=== PATIENT | male | born 1930 | race African-American/Black ===

== ENCOUNTER 2019-02-06 20:05 | Emergency (ER) | payer OTHER, MEDICARE ==
[~2019-02-06] VITALS: Ht 170.2 cm; Wt 63.5 kg
[~2019-02-06 20:05] MED LIST: DIAZEPAM 5 MG5 M1; FLEXERIL; HYDROCODONE BT1 EAC1; LISINOPRIL-HCT1 EACH; SIMVASTATIN10 MG; TRIAM60 TP
[2019-02-06 21:11] LABS: ABSOLUTE NEUTROPHILS 3.9 thou/uL (1.4-8.2); BASOPHILS 1.2 % (0.0-2.0); EOSINOPHILS 1.4 % (0.0-3.0); HEMATOCRIT 39.7 % (42.0-52.0); HEMOGLOBIN 13.2 gm/dL (14.0-18.0); LYMPHOCYTES 27.6 % (24.0-44.0); MCH 30.6 pg (26.0-34.0); MCHC 33.4 g/dL (28.0-37.0); MCV 91.7 fL (80.0-100.0); MONOCYTES 10.2 % (1.0-8.0); PLATELET COUNT 156 thou/uL (150-400); POLYS 59.6 % (36.0-66.0); RBC 4.33 mil/uL (4.50-6.00); RDW 14.9 % (10.5-14.5); WBC 6.5 thou/uL (4.0-11.0)
[2019-02-06 21:17] LABS: ANION GAP 7 mmol/L (7-16); BUN 26 mg/dL (7-18); CALCIUM 8.8 mg/dL (8.5-10.1); CHLORIDE 105 mmol/L (98-107); CO2 28 mmol/L (21-32); CREATININE 1.6 mg/dL (0.7-1.3); GLUCOSE 134 mg/dL (74-106); POTASSIUM 5.9 mmol/L (3.5-5.1); SODIUM 140 mmol/L (136-145)
[2019-02-06 21:28] LABS: ALBUMIN 3.3 g/dL (3.4-5.0); LIPASE 48 U/L (73-393); MAGNESIUM 2.3 mg/dL (1.8-2.4); SGOT 38 U/L (15-37); SGPT 15 U/L (30-65); TOTAL BILIRUBIN 0.6 mg/dL (<0.1-1.0); TOTAL PROTEIN 7.2 g/dL (6.4-8.2); TROPONIN-I <0.06 ng/mL (<0.06)
[2019-02-06 23:15] VITALS: BP 120/68
--- NOTE | 2019-02-07 08:02 | EKG ---
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 : 1930 Requested By: Boston Falcon Order Number: [id number] MD: Raúl Kevin Measurements Intervals [place] Rate: 73 P: 49 RI: 173 QRS: 35 QRSD: 83 T: 64 QT: 380 QTc: 419 Interpretive Statements Sinus rhythm Poor R wave progression No previous ECG available for comparison Electronically Signed On 02-07-2019 8:01:56 CDT by Raúl Kevin [email or web address] ��������������������������������������������� <ELECTRONICALLY SIGNED> ���������������������������������������� By: Raúl Kevin MD, [facility] ��������������������������������������������� 02/07/19 0801 2048 2048 Raúl Kevin MD, FAC /EPI
== END 2019-02-06 23:15 | disposition home or self-care (01) ==
LOC: ER 20:05
PROVIDERS: Emergency Medicine
DX: R53.1 Weakness (principal); R63.0 Anorexia; Z68.20 Body mass index [BMI] 20.0-20.9, adult; I12.9 Hypertensive chronic kidney disease with stage 1 through stage 4 chronic kidney disease, or unspecified chronic kidney disease; N18.9 Chronic kidney disease, unspecified

== ENCOUNTER 2019-03-08 21:10 | Inpatient (IN) | payer OTHER, MEDICARE ==
[~2019-03-08] VITALS: Ht 170.2 cm; Wt 60.6 kg
--- NOTE | ~2019-03-08 | HC ---
[facility] [place] [address] CONSULTATION Name: Arlene SCHWARTZ Room #: 355-P [facility] IN [facility].#: [id number] Admission: 03/09/19 Attend Phys: Jose Martin Juarez MD Discharge: Date of : [birth year] Report #: [id number] THIS REPORT FOR: //name// CC: Alexandre Juarez Olegario Luongis DATE OF SERVICE: 03/16/2019 HISTORY OF PRESENT ILLNESS: The patient is an 89-year-old male with a history of hypertension, chronic kidney disease, anemia, hiatal hernia, who presented from home with intermittent lower abdominal pain. He underwent a laparoscopic Momo patch of a perforated gastric ulcer on 03/09/2019. He had issues with post-procedure delirium and pulled out his NG tube. He was taken back to the OR on 03/13/2019 for exploratory lap, NG tube insertion and gastric ulcer biopsy. He had a modified Momo patch. Plan is for several more days of n.p.o. status, NG tube to low intermittent suction. Daughter has been staying with him and the mental status changes appear improved. He is currently on TPN. From my review, he is to have an upper GI on 03/18/2019. PAST MEDICAL HISTORY: Includes BPH, GERD, hypertension, multi-joint degenerative arthritis, back pain, chronic kidney disease stage 3, anemia, cholecystectomy, and lumbar fusion L3-L5. MEDICATIONS: Please see the full medication listing. ALLERGIES: No known drug allergies. HABITS: No history of alcohol abuse. He is noted to be a former smoker. SOCIAL HISTORY: Lives in a house alone. His daughter frequently visits and assists with IADLs. She will be able to stay with the patient post-discharge. He was a premorbid cane ambulator and more recently was utilizing a walker. REVIEW OF SYSTEMS: No current complaints of chest pain, shortness of breath or abdominal discomfort. Notes, he has chronic degenerative arthritis. PHYSICAL EXAMINATION: GENERAL: An 89-year-old slender -Maldivian male in no obvious distress. VITAL SIGNS: Last recorded temperature 97.6, pulse 71, respirations 18, blood pressure 156/60. ABDOMEN: He has the NG tube in place. Abdominal dressing with GRISEL drain and Andrea catheter. NEUROLOGIC: He is alert, tends to defer some of the answers to his daughter will follow basic 1 step commands. Facies are symmetric. Functional range of motion of the upper extremity strength is grade 4-/5. DTRs are trace to 1. [address] [address] CONSULTATION Name: Arlene SCHWARTZ Room #: [address] [place] [address]#: [id number] Admission: 03/09/19 Attend Phys: Jose Martin Juarez MD Discharge: Date of : [birth year] Report #: [id number] Lower extremities: He has chronic degenerative arthritic complaints. Strength is probably a grade 3+ to 4-/5. No distal lower extremity edema. Sit to stand was max assist. Gait 40 feet min assist front-wheeled walker. ASSESSMENT: An 89-year-old -Maldivian male with the following problem list: 1. Postoperative delirium/toxic metabolic encephalopathy that appears improved. 2. Perforated gastric ulcer, status post laparoscopic and then opened modified Momo patch. 3. N.p.o. currently with NG tube and TPN. 4. Generalized weakness and debilitation. 5. Multi-joint arthritis. 6. Premorbid walker ambulator. 7. Chronic kidney disease. PLAN: We are following the patient regarding rehab therapy issues. May consider him for an acute in-hospital inpatient rehabilitation stay as he further medically stabilizes. Discussion with the patient's daughter. We will be glad to follow along with you. Functionally progresses as he further medically stabilizes. By: 1210 1545 Joseluis Penn MD /nt
[2019-03-08 21:13] VITALS: BP 91/34
[2019-03-08 22:18] LABS: BASOPHILS 0.3 % (0.0-2.0); EOSINOPHILS 0.3 % (0.0-3.0); HEMATOCRIT 39.2 % (42.0-52.0); HEMOGLOBIN 13.1 gm/dL (14.0-18.0); LYMPHOCYTES 8.9 % (24.0-44.0); MCH 30.2 pg (26.0-34.0); MCHC 33.3 g/dL (28.0-37.0); MCV 90.7 fL (80.0-100.0); MONOCYTES 8.2 % (1.0-8.0); PLATELET COUNT 158 thou/uL (150-400); POLYS 82.3 % (36.0-66.0); RBC 4.32 mil/uL (4.50-6.00); RDW 13.9 % (10.5-14.5); WBC 6.1 thou/uL (4.0-11.0)
[2019-03-08 22:29] LABS: CALCIUM 9.1 mg/dL (8.5-10.1); CREATININE 1.7 mg/dL (0.7-1.3)
[2019-03-08 22:34] LABS: ALBUMIN 3.1 g/dL (3.4-5.0); TOTAL BILIRUBIN 0.3 mg/dL (<0.1-1.0); TOTAL PROTEIN 6.2 g/dL (6.4-8.2)
[2019-03-08 22:36] LABS: MAGNESIUM 2.4 mg/dL (1.8-2.4); TROPONIN-I <0.06 ng/mL (<0.06)
[2019-03-08 23:56] LABS: URINE BILIRUBIN NEGATIVE (Negative); URINE BLOOD NEGATIVE (Negative); URINE CLARITY CLEAR; URINE COLOR YELLOW; URINE GLUCOSE-RANDOM* NEGATIVE (Negative); URINE KETONES NEGATIVE (Negative); URINE LEUKOCYTES-REFLEX NEGATIVE (Negative); URINE NITRITE-REFLEX NEGATIVE (Negative); URINE PROTEIN (DIPSTICK) NEGATIVE (Negative); URINE UROBILINOGEN 0.2 E.U./dl (0.2-1.0)
[2019-03-09] VITALS (29 sets, daily range): BP systolic 83–139; BP diastolic 44–71
[2019-03-09 01:14] LABS: APTT 25.5 Seconds (24.5-32.8); PROTIME 9.8 Seconds (9.3-11.4)
[2019-03-09 05:46] LABS: MCH 30.2 pg (26.0-34.0); MCHC 33.3 g/dL (28.0-37.0); MCV 90.8 fL (80.0-100.0); RBC 4.3 mil/uL (4.50-6.00)
[2019-03-09 05:55] LABS: CALCIUM 8.7 mg/dL (8.5-10.1); CREATININE 1.5 mg/dL (0.7-1.3); POTASSIUM 5.2 mmol/L (3.5-5.1)
--- NOTE | 2019-03-09 08:14 | EKG ---
[place] [address] [facility] [place] [address] ELECTROCARDIOGRAM REPORT Name: Arlene SCHWARTZ Room #: 241-P [facility] IN M.R.#: [id number] Admission: 03/09/19 Attend Phys: Jose Martin Juarez MD Discharge: Date of : [birth year] Report #: [id number] THIS REPORT FOR: //name// [facility] ED Test Date: 2019-03-08 Test Time: 21:32:44 Pat Name: Arlene ORTEGASCHWARTZ Department: Room: 241 Gender: M Machine Designer: JULIAN : 1930 Requested By: Tony Pickard Order Number: [id number] MD: Raúl Kevin Measurements Intervals [place] Rate: 77 P: 41 [place]: 175 QRS: 27 QRSD: 73 T: 58 QT: 348 QTc: 394 Interpretive Statements Baseline artifact Sinus rhythm Probable anteroseptal infarct, old Cannot rule out inferior repolarization abnormality No previous ECGs available for comparison Electronically Signed On 03-09-2019 8:14:40 CDT by Raúl Kevin [email or web address] <ELECTRONICALLY SIGNED> By: Raúl Kevin MD, [facility] 03/09/19813 31 31 Raúl Kevin MD, [facility] /EPI
[2019-03-09] MEDS ORDERED: LIORESAL 10 MG10 MG PO (09:04)
[2019-03-09] MEDS ORDERED: ASPIR 8181 MG PO (09:04)
[2019-03-09] MEDS ORDERED: NORVASC5 MG PO (09:05)
[2019-03-09] MEDS ORDERED: ACETAMINOPHEN-1 EAC2 PO (09:05)
[2019-03-09] MEDS ORDERED: MOBIC15 MG PO (09:05)
[2019-03-09] MEDS ORDERED: VALIUM5 MG PO (09:06)
[2019-03-09] MEDS ORDERED: PROSCAR 5MG TABL5 MG PO (09:06)
[2019-03-09] MEDS ORDERED: CARVEDILOL3.125 MG PO (09:06)
[2019-03-09] MEDS ORDERED: FLOMAX0.4 MG PO (09:06)
[2019-03-09] MEDS ORDERED: PROTONIX40 M1 PO (09:07)
[2019-03-09] MEDS ORDERED: CARAFATE 1 GM TA1 G1 PO (09:07)
[2019-03-09] MEDS ORDERED: ZOCOR20 MG PO (09:08)
[2019-03-10 03:47] VITALS: BP 118/59
[2019-03-10 05:06] LABS: HEMATOCRIT 32.8 % (42.0-52.0); MCH 30.6 pg (26.0-34.0); MCHC 33.4 g/dL (28.0-37.0); MCV 91.5 fL (80.0-100.0); RBC 3.59 mil/uL (4.50-6.00); RDW 14.6 % (10.5-14.5); WBC 10.2 thou/uL (4.0-11.0)
[2019-03-10 05:22] LABS: CALCIUM 8.4 mg/dL (8.5-10.1); CREATININE 1.6 mg/dL (0.7-1.3); MAGNESIUM 2.2 mg/dL (1.8-2.4); PHOSPHORUS 3.7 mg/dL (2.5-4.9); POTASSIUM 5.3 mmol/L (3.5-5.1)
[2019-03-10 07:51] VITALS: BP 119/52
[2019-03-10 11:14] VITALS: BP 125/54
[2019-03-10 15:54] VITALS: BP 138/65
[2019-03-10 19:40] VITALS: BP 167/85
[2019-03-11 03:45] VITALS: BP 163/81
[2019-03-11 04:32] LABS: HEMATOCRIT 36.8 % (42.0-52.0); HEMOGLOBIN 12.1 gm/dL (14.0-18.0); MCH 29.9 pg (26.0-34.0); MCHC 32.8 g/dL (28.0-37.0); MCV 91.3 fL (80.0-100.0); RBC 4.03 mil/uL (4.50-6.00); RDW 14.3 % (10.5-14.5)
[2019-03-11 04:47] LABS: CALCIUM 8.5 mg/dL (8.5-10.1); CREATININE 1.2 mg/dL (0.7-1.3)
[2019-03-11 04:50] LABS: POTASSIUM 3.7 mmol/L (3.5-5.1)
[2019-03-11 07:24] VITALS: BP 158/86
[2019-03-11 12:00] VITALS: BP 161/97
[2019-03-11 14:50] VITALS: BP 144/79
[2019-03-11 19:04] VITALS: BP 153/85
[2019-03-11 23:52] VITALS: BP 156/86
[2019-03-12 03:46] VITALS: BP 153/70
[2019-03-12 07:42] VITALS: BP 168/86
[2019-03-12 10:06] LABS: ABSOLUTE NEUTROPHILS 8.4 thou/uL (1.4-8.2); BASOPHILS 0.1 % (0.0-2.0); EOSINOPHILS 0.1 % (0.0-3.0); HEMATOCRIT 37.6 % (42.0-52.0); HEMOGLOBIN 12.8 gm/dL (14.0-18.0); LYMPHOCYTES 8.7 % (24.0-44.0); MCH 30.3 pg (26.0-34.0); MCHC 33.9 g/dL (28.0-37.0); MCV 89.4 fL (80.0-100.0); MONOCYTES 6.4 % (1.0-8.0); PLATELET COUNT 189 thou/uL (150-400); POLYS 84.7 % (36.0-66.0); RBC 4.21 mil/uL (4.50-6.00); RDW 14.1 % (10.5-14.5); WBC 9.9 thou/uL (4.0-11.0)
[2019-03-12 10:13] LABS: CALCIUM 8.6 mg/dL (8.5-10.1); CREATININE 1.1 mg/dL (0.7-1.3)
[2019-03-12 11:28] VITALS: BP 173/86
[2019-03-12 15:44] VITALS: BP 144/71
[2019-03-12 19:46] VITALS: BP 162/96; BP 177/100
[2019-03-12 23:40] VITALS: BP 126/58
[2019-03-13 04:36] VITALS: BP 172/87
[2019-03-13 05:32] LABS: HEMATOCRIT 33.1 % (42.0-52.0); HEMOGLOBIN 11.2 gm/dL (14.0-18.0); MCH 30.3 pg (26.0-34.0); MCHC 33.9 g/dL (28.0-37.0); MCV 89.3 fL (80.0-100.0); RBC 3.71 mil/uL (4.50-6.00); RDW 13.9 % (10.5-14.5)
[2019-03-13 05:42] LABS: CALCIUM 7.8 mg/dL (8.5-10.1)
[2019-03-13 05:44] LABS: POTASSIUM 2.9 mmol/L (3.5-5.1)
[2019-03-13 07:26] VITALS: BP 136/71
[2019-03-13 11:37] VITALS: BP 145/91
[2019-03-13 14:13] LABS: ALBUMIN 1.9 g/dL (3.4-5.0); PHOSPHORUS 1.6 mg/dL (2.5-4.9)
[2019-03-13 18:06] VITALS: BP 141/79
[2019-03-13 18:15] LABS: ALBUMIN 2.1 g/dL (3.4-5.0); CALCIUM 8.2 mg/dL (8.5-10.1); CREATININE 0.9 mg/dL (0.7-1.3); PHOSPHORUS 1.6 mg/dL (2.5-4.9); POTASSIUM 3.3 mmol/L (3.5-5.1)
[2019-03-13 19:16] LABS: HEMATOCRIT 37.5 % (42.0-52.0); HEMOGLOBIN 12.6 gm/dL (14.0-18.0); MCH 29.7 pg (26.0-34.0); MCHC 33.5 g/dL (28.0-37.0); MCV 88.4 fL (80.0-100.0); RBC 4.24 mil/uL (4.50-6.00); RDW 14.1 % (10.5-14.5); WBC 9.8 thou/uL (4.0-11.0)
[2019-03-13 19:45] VITALS: BP 129/69
[2019-03-13 23:10] VITALS: BP 137/63
[2019-03-14 04:35] VITALS: BP 138/69
[2019-03-14 05:38] LABS: ALBUMIN 1.7 g/dL (3.4-5.0); CALCIUM 7.5 mg/dL (8.5-10.1); CREATININE 1.2 mg/dL (0.7-1.3); MAGNESIUM 1.9 mg/dL (1.8-2.4); PHOSPHORUS 3.2 mg/dL (2.5-4.9); POTASSIUM 3.6 mmol/L (3.5-5.1); TOTAL BILIRUBIN 0.2 mg/dL (<0.1-1.0); TOTAL PROTEIN 4.8 g/dL (6.4-8.2)
[2019-03-14 05:40] LABS: HEMOGLOBIN 10.8 gm/dL (14.0-18.0); MCH 29.4 pg (26.0-34.0); MCHC 32.8 g/dL (28.0-37.0); MCV 89.6 fL (80.0-100.0); RBC 3.69 mil/uL (4.50-6.00); RDW 14.3 % (10.5-14.5); WBC 8.4 thou/uL (4.0-11.0)
[2019-03-14 07:37] VITALS: BP 136/59
[2019-03-14 11:23] VITALS: BP 149/69
[2019-03-14 15:35] VITALS: BP 148/67
[2019-03-14 19:26] VITALS: BP 133/69
[2019-03-15 04:10] VITALS: BP 147/67
[2019-03-15 05:49] LABS: HEMATOCRIT 32.2 % (42.0-52.0); HEMOGLOBIN 10.8 gm/dL (14.0-18.0); MCHC 33.6 g/dL (28.0-37.0); MCV 89.3 fL (80.0-100.0); RBC 3.61 mil/uL (4.50-6.00); RDW 14.5 % (10.5-14.5); WBC 7.9 thou/uL (4.0-11.0)
[2019-03-15 06:01] LABS: CALCIUM 7.7 mg/dL (8.5-10.1); MAGNESIUM 1.8 mg/dL (1.8-2.4); POTASSIUM 3.4 mmol/L (3.5-5.1)
[2019-03-15 07:24] VITALS: BP 155/73
[2019-03-15 11:38] VITALS: BP 168/78
[2019-03-15 15:44] VITALS: BP 146/67
--- NOTE | 2019-03-15 16:06 | PATH ---
[facility] [address] [place] [address] PATHOLOGY RPT PROCEDURE Name: Arlene SCHWARTZ Room #: 352-P ADM IN M.R.#: [id number] Admission: 03/09/19 Date of : [birth year] Discharge: Report #: [id number] Path Case #: [id number] [facility] Accession Number: [id number] . 01 Material submitted: . stomach - STOMACH ULCER . 01 Clinical history: . Perforated peptic ulcer Add H. pylori IHC . 02 Diagnosis: Tissue designated as "stomach ulcer", exploratory laparotomy and biopsy: - Specimen predominantly comprised of marked serositis, marked acute inflammation of the subserosal tissue as well as fibrinopurulent material, compatible with the provided history of perforated ulcer (please see comment). - Negative for malignancy. LBQ/03/15/2019 . 02 Comment: Examination shows tissue biopsy comprised of serosa as well as subserosal tissues in addition to fibropurulent material. This fibrinopurulent material may represent the ulcerated mucosa and submucosa or the serositis. A properly controlled Helicobacter pylori immunohistochemical stain is performed on block A1 and it shows no Helicobacter pylori organisms in this tissue. There is extensive acute and chronic inflammation present. There is no malignancy present within this sample. (IUV/db; 03/15/2019) . 02 Electronically signed: . Jody Alvarado MD, Pathologist NPI- [id number] . 01 Gross description: . Received fresh labeled "Arlene Schwartz, stomach ulcer," is a segment of possible mucosal-covered soft tissue measuring 1.0 x 0.6 x 0.5 cm in greatest dimensions. The possible mucosal surface is irregularly contoured, partially flaky and pink-knowles to yellow-knowles in appearance. The suspected surgical margin is inked black, and the specimen is serially sectioned and submitted entirely in cassette A1. ([facility]; 03/14/2019) XDC/XDC . 02 Pathologist provided ICD-10: K65.8, K29.00, K25.9 . [address] [address] PATHOLOGY RPT PROCEDURE Name: Arlene SCHWARTZ Room #: 352-P [facility] IN .R.#: [id number] Admission: 03/09/19 Date of : [birth year] Discharge: Report #: [id number] Path Case #: [id number] [facility] . [id number], [id number] Specimen Comment: A courtesy copy of this report has been sent to Specimen Comment: [phone], , , . Specimen Comment: Report sent to ,DR LANG,DR NAGY / DR HALL Performed at: [address] [facility], [place], [place] [id number] MD Chase Aragon MD Phone: [phone] Performed at: [address] [facility] [id number] MD Jody Alvarado MD Phone: [phone]
[2019-03-15 19:45] VITALS: BP 174/62
[2019-03-16 00:09] VITALS: BP 148/58
[2019-03-16 03:46] LABS: HEMATOCRIT 31.3 % (42.0-52.0); HEMOGLOBIN 10.4 gm/dL (14.0-18.0); MCHC 33.3 g/dL (28.0-37.0); MCV 89.9 fL (80.0-100.0); RBC 3.48 mil/uL (4.50-6.00); RDW 14.5 % (10.5-14.5); WBC 7.4 thou/uL (4.0-11.0)
[2019-03-16 03:58] LABS: CALCIUM 7.7 mg/dL (8.5-10.1); CREATININE 0.8 mg/dL (0.7-1.3); MAGNESIUM 2.2 mg/dL (1.8-2.4); PHOSPHORUS 2.2 mg/dL (2.5-4.9); POTASSIUM 3.9 mmol/L (3.5-5.1)
[2019-03-16 04:25] VITALS: BP 145/66
[2019-03-16 07:40] VITALS: BP 156/60
[2019-03-16 12:19] VITALS: BP 168/77
[2019-03-16 15:57] VITALS: BP 158/77
[2019-03-16 19:41] VITALS: BP 160/75
[2019-03-17 04:54] LABS: CALCIUM 7.8 mg/dL (8.5-10.1); CREATININE 0.9 mg/dL (0.7-1.3); PHOSPHORUS 2.7 mg/dL (2.5-4.9); POTASSIUM 3.8 mmol/L (3.5-5.1)
[2019-03-17 05:08] LABS: HEMATOCRIT 30.8 % (42.0-52.0); HEMOGLOBIN 10.5 gm/dL (14.0-18.0); MCH 30.3 pg (26.0-34.0); MCHC 34.1 g/dL (28.0-37.0); MCV 88.8 fL (80.0-100.0); RBC 3.47 mil/uL (4.50-6.00); RDW 14.5 % (10.5-14.5); WBC 8.3 thou/uL (4.0-11.0)
[2019-03-17 05:53] VITALS: BP 161/65
[2019-03-17 07:41] VITALS: BP 179/62
[2019-03-17 10:30] VITALS: BP 172/64
--- NOTE | 2019-03-17 11:26 | O ---
[address] [address] OPERATIVE REPORT Name: Arlene SCHWARTZ Room #: 355-P [facility] IN .R.#: [id number] Admission: 03/09/19 Attend Phys: Jose Martin Juarez MD Discharge: Date of : [birth year] Report #: [id number] THIS REPORT FOR: //name// CC: Alexandre Mirza DATE OF SERVICE: 03/09/2019 PREPROCEDURAL DIAGNOSES: 1. Pneumoperitoneum. 2. Acute abdomen. 3. Hypertension. 4. Chronic kidney disease stage 3. 5. Gastroesophageal reflux disease. 6. Hypertension. 7. Benign prostatic hypertrophy. POSTPROCEDURAL DIAGNOSES: 1. Perforated gastric ulcer, prepyloric. 2. Purulent peritonitis. PROCEDURE PERFORMED: Laparoscopic Momo patch of perforated gastric ulcer. SURGEON: Cornell Austin MD ASSISTANTS: None. ANESTHETIC: 1. General. 2. Local. ESTIMATED BLOOD LOSS: 10 mL. URINE OUTPUT: 100 mL. COMPLICATIONS: None. FINDINGS: 1. The patient had purulent peritonitis. 2. The patient had a subcentimeter perforated gastric ulcer on the anterior aspect of the stomach in the prepyloric position. 3. The patient had fibrinous material throughout his bilateral upper quadrants, indicating disease process had been ongoing for an unknown prolonged period of time. 4. No other gross abnormalities appreciated. [address] [address] OPERATIVE REPORT Name: Arlene SCHWARTZ Room #: 355-P [facility]#: [id number] Admission: 03/09/19 Attend Phys: Jose Martin Juarez MD Discharge: Date of : [birth year] Report #: [id number] SPECIMENS: None. COMPLICATIONS: None. INDICATION FOR PROCEDURE: The patient is a very pleasant 89-year-old gentleman who presented to the ER with abdominal pain. Chest x-ray identified free air. CT scan was performed, which was concerning for perforated peptic ulcer. He was consented for emergent surgery. The risks, benefits and alternatives of the procedure were discussed with the patient. The risks discussed included, but were not limited to the risk of bleeding, infection, conversion to open bowel resection, ongoing leak, need for further surgery, need for further hospitalization, need for prolonged hospitalization, postoperative complications such as abscess, ongoing leak, anesthetic including cardiac, pulmonary and neurologic type complications, and . The patient had the opportunity to ask questions. All questions were answered to the best of my ability. At the end of the discussion, he did wish to proceed with surgery. DESCRIPTION OF PROCEDURE: After informed consent was obtained, the patient was taken to the operating room and placed in the supine position. General anesthesia was induced. Preprocedural antibiotics were administered and his arms were extended. The abdomen was prepped and draped in the usual sterile fashion. A Andrea catheter had been inserted. After a timeout was performed after all and was in agreement, a 5 mm incision was made in the infraumbilical position. After injecting local anesthetic, a Veress needle was then inserted. Pneumoperitoneum was created. A 5 mm port was passed. A 30-degree laparoscope was inserted. The abdomen was inspected, findings as above. The patient did have fibrinous material throughout the bilateral upper quadrants. He also had green purulent peritonitis throughout the abdomen and contamination of all 4 quadrants following ports were placed in the standard fashion. Under direct visualization after injection of local anesthetic: A 5 mm left upper quadrant port, 5 mm right upper quadrant port, and a 12 mm right upper quadrant port. Next, the stomach was thoroughly explored. The patient was found to have a subcentimeter prepyloric ulcer along the anterior surface of the stomach. This region was debrided appropriately. The tissue surrounding the ulcer was felt to be amenable to hold suture. The patient did have adequate omentum for Momo patch. Therefore, a Momo patch procedure was planned using 0 silk on a SH needle, Lembert sutures were placed cephalad and caudal to the ulcer taking big bites of full thickness stomach. The anesthesia team had already placed an NG tube in stomach was already decompressed. The sutures were placed in a limited fashion. Next, the tongue of omentum was brought underneath the suture in the middle, creating a W-like shape and passing the omentum underneath the W. The sutures were then tied down [facility] [address] [place] [address] OPERATIVE REPORT Name: Arlene SCHWARTZ Room #: 355-P [facility] IN .R.#: [id number] Admission: 03/09/19 Attend Phys: Jose Martin Juarez MD Discharge: Date of : [birth year] Report #: [id number] laparoscopically in an interrupted fashion. The omentum was held into place nicely. The patch did seem to be adequate. A Shaker liver retractor was placed to assist with visualization before beginning the Momo patch. This was done through a subcentimeter incision in the right subcostal region. The Momo patch did appear to be adequate. We then suctioned out all free fluid possible. We then irrigated the abdomen all 4 quadrants using copious amounts of warm irrigation, approximately over 3 liters were used. The free fluid was all suctioned out as best possible. Drain was placed in the subhepatic space adjacent to the repair and brought out a 5 mm port site on the right upper quadrant and sutured in place using 2-0 silk. The pneumoperitoneum was released. The liver retractor had been removed. The ports were removed. Hemostasis was present. The 12 mm port site was closed using 0 Vicryl in a laparoscopic fascial closure fashion. The skin was closed at all sites using 4-0 Monocryl in a subcuticular interrupted fashion. The patient tolerated the procedure well and there were no adverse events throughout the course of procedure. He was extubated and transferred to the PACU in stable condition. <ELECTRONICALLY SIGNED> By: Cornell Austin MD 03/17/19 1126 1141 1224 Cornell Austin MD /nt
[2019-03-17 12:08] VITALS: BP 158/63
[2019-03-17 15:16] VITALS: BP 172/63
[2019-03-17 20:04] VITALS: BP 173/78
[2019-03-18 03:56] VITALS: BP 188/88
[2019-03-18 05:28] LABS: CALCIUM 7.8 mg/dL (8.5-10.1); CREATININE 0.8 mg/dL (0.7-1.3); MAGNESIUM 1.9 mg/dL (1.8-2.4); PHOSPHORUS 2.8 mg/dL (2.5-4.9); POTASSIUM 3.7 mmol/L (3.5-5.1)
[2019-03-18 07:33] VITALS: BP 167/71
[2019-03-18 11:16] VITALS: BP 163/83
[2019-03-18 15:41] VITALS: BP 168/69
[2019-03-18 20:42] VITALS: BP 168/78
[2019-03-19 04:03] VITALS: BP 181/84
[2019-03-19 08:10] VITALS: BP 157/69
[2019-03-19 11:39] VITALS: BP 187/69
--- NOTE | 2019-03-19 14:31 | HC ---
[facility] [place] [address] CONSULTATION Name: Arlene SCHWARTZ Room #: 355-[facility] IN [facility]#: [id number] Admission: 03/09/19 Attend Phys: Jose Martin Juarez MD Discharge: Date of : [birth year] Report #: [id number] THIS REPORT FOR: //name// CC: Alexandre Lealen Hermes DATE OF SERVICE: 03/16/2019 INFECTIOUS DISEASE CONSULTATION REASON FOR CONSULTATION: I was asked to evaluate concerning peritonitis and bacteremia. HISTORY OF PRESENT ILLNESS: The patient is an 89-year-old with underlying history of hypertension, chronic kidney disease, anemia, who presents with increased abdominal pain, lethargy, general weakness. He states that he has not felt well for several weeks or more. He has been anorexic. Denies any fever, chills or sweats. He has had no trauma noted. Previous history of a ventral hernia repair. Earlier this year, he was diagnosed with salmonella. Details of this are not available. He was treated at [facility]. On 03/09/2019, patient underwent laparoscopic repair of gastric perforation with a Momo patch. There was diffuse peritonitis throughout the abdomen. No cultures were obtained. He did well postoperatively; however, on repeat upper GI testing, there was evidence of persistent leak. He was taken back to surgery on 03/13/2019. No new perforation was identified. It was then closed. The patient remains with a NG tube to suction. No fever, chills or sweats. Blood cultures from 03/09/2019 have revealed Staphylococcus hominis methicillin-resistant. The patient has had no report of valvular heart disease. He has had a recent episode of salmonella that was diagnosed in November at [facility]. ALLERGIES: No known allergies. MEDICATIONS: As noted on his MAR including ceftriaxone, metronidazole. PAST MEDICAL HISTORY: BPH, gastroesophageal reflux, hypertension, degenerative joint disease, chronic kidney disease, anemia, cholecystectomy, lumbar fusion. FAMILY HISTORY: Noncontributory. SOCIAL HISTORY: Past smoker, no significant alcohol intake. 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 REVIEW OF SYSTEMS: The patient continues with an NG tube to suction. He has passed stool. Pain is under control. He has had no cough or sputum production. [facility] [address] [place] [address] CONSULTATION Name: SCHWARTZArlene Room #: 355-P [facility] IN [facility]#: [id number] Admission: 03/09/19 Attend Phys: Jose Martin Juarez MD Discharge: Date of : [birth year] Report #: [id number] He has indwelling Andrea catheter. No rashes or decubiti. REVIEW OF SYSTEMS: A 10-point review of systems was negative other than what is described above. PHYSICAL EXAMINATION: VITAL SIGNS: Afebrile and hemodynamically stable. Alert and cooperative, in no acute distress. He is lying in bed with NG tube in place. EYES: Without scleral icterus. MOUTH: Without mucositis. NECK: Supple. LUNGS: Clear. HEART: Regular, without murmur. ABDOMEN: Mildly distended, tender throughout. GRISEL drain with serosanguineous output. Midline abdominal incision was dressed and dry. GENITOURINARY: External genitalia unremarkable with no lesion or mass. RECTAL: Not performed. BACK: Nontender. NEUROLOGIC: No CVA tenderness. Cranial nerves intact. Strength in the upper and lower extremities was normal. Sensation upper and lower extremities normal. Mood normal. LABORATORY STUDIES: Reviewed. Blood cultures as noted above, 1 of 2 showing Staphylococcus hominis from 03/09/2019. His hemoglobin is 10.4, white count 7.4, creatinine 0.8. CT scan and upper GI series reviewed from 03/13/2019. It is noted that on the CT scan a persistent pneumoperitoneum, right upper quadrant mesenteric edema with fluid tracking in both pericolic gutters. IMPRESSION: An 89-year-old with gastric perforation and peritonitis. He is now 1 week post original surgery for repair of the gastric leak followed by second look procedure 3 days ago. The Staphylococcus hominis bacteremia is indeterminate, but very well may be related to his peritonitis for these organisms are seen in the upper abdomen. RECOMMENDATION: I would continue antibiotic coverage for his peritonitis considering the findings this week. We will incorporate vancomycin and ceftriaxone and drop out the metronidazole. We would treat through next week. I have discussed this with the patient, his and attending. We will monitor drug levels. Monitor CBC and his kidney function. We will make further adjustments accordingly. <ELECTRONICALLY SIGNED> By: Boston Larson MD 03/19/19 1431 1515 0007 Boston Larson MD /nt
[2019-03-19 16:18] VITALS: BP 159/74
[2019-03-19 20:06] VITALS: BP 135/71
[2019-03-20 04:32] VITALS: BP 145/61
[2019-03-20 06:17] LABS: CALCIUM 7.9 mg/dL (8.5-10.1); CREATININE 0.9 mg/dL (0.7-1.3); MAGNESIUM 2.1 mg/dL (1.8-2.4); PHOSPHORUS 3.4 mg/dL (2.5-4.9); POTASSIUM 4.1 mmol/L (3.5-5.1)
[2019-03-20 07:49] VITALS: BP 160/74
[2019-03-20 11:24] VITALS: BP 145/60
== END 2019-03-20 15:45 | DRG 326 ==
LOC: ER 21:10 → EROBS 03-09 00:41 → ICU 03-09 00:41 → 3W 03-09 18:00
PROVIDERS: Emergency Medicine; Nurse Practitioner Family; Surgery; ADMIT Hospitalist
PROC: 0DU647Z Supplement Stomach with Autologous Tissue Substitute, Percutaneous Endoscopic Approach (ICD-10-PCS; principal; 2019-03-09)
PROC: 02HV33Z Insertion of Infusion Device into Superior Vena Cava, Percutaneous Approach (ICD-10-PCS; 2019-03-13)
PROC: 0DB60ZX Excision of Stomach, Open Approach, Diagnostic (ICD-10-PCS; 2019-03-13)
PROC: 0DU607Z Supplement Stomach with Autologous Tissue Substitute, Open Approach (ICD-10-PCS; 2019-03-13)
PROC: 0D9670Z Drainage of Stomach with Drainage Device, Via Natural or Artificial Opening (ICD-10-PCS; 2019-03-13)
DX: K25.5 Chronic or unspecified gastric ulcer with perforation (principal); K65.0 Generalized (acute) peritonitis; G92 Toxic encephalopathy; D62 Acute posthemorrhagic anemia; E46 Unspecified protein-calorie malnutrition; I12.9 Hypertensive chronic kidney disease with stage 1 through stage 4 chronic kidney disease, or unspecified chronic kidney disease; N40.0 Benign prostatic hyperplasia without lower urinary tract symptoms; K21.9 Gastro-esophageal reflux disease without esophagitis; F41.9 Anxiety disorder, unspecified; E87.6 Hypokalemia; E83.39 Other disorders of phosphorus metabolism; B95.7 Other staphylococcus as the cause of diseases classified elsewhere; F03.90 Unspecified dementia, unspecified severity, without behavioral disturbance, psychotic disturbance, mood disturbance, and anxiety; M62.838 Other muscle spasm; M15.9 Polyosteoarthritis, unspecified; E78.5 Hyperlipidemia, unspecified; N18.3 Chronic kidney disease, stage 3 (moderate); Z98.1 Arthrodesis status; Z68.20 Body mass index [BMI] 20.0-20.9, adult; Z90.49 Acquired absence of other specified parts of digestive tract; Z87.891 Personal history of nicotine dependence; Z79.899 Other long term (current) drug therapy
CPT/HCPCS: 10879; 27000; 50010; 50101; 50249; 50331; 50386; 50455; 50555; 50558; 51412; 51489; 52265; 53307; 53310; 54022; 54118; 56462; 56524; 56525; 56526; 57092; 57103; 62110; 62900; 70005

== ENCOUNTER 2019-03-20 14:15 | Inpatient (IN) | payer OTHER, MEDICARE ==
[~2019-03-20] VITALS: Ht 170.2 cm; Wt 55.1 kg
--- NOTE | ~2019-03-20 | HC ---
[facility] [place] [address] CONSULTATION Name: Arlene SCHWARTZ Room #: 506-1 [facility] IN ..#: [id number] Admission: 03/20/19 Attend Phys: Joseluis Penn MD Discharge: Date of : 01/26/[birth year] Report #: [id number] THIS REPORT FOR: //name// CC: Joseluis Mirza DATE OF SERVICE: 03/31/2019 NEUROBEHAVIORAL STATUS EXAM ATTENDING PHYSICIAN: Joseluis Penn MD RESEARCH QUALITY ASSURANCE SPECIALIST: Narciso Navarro, PhD CLINICAL PRESENTATION: The patient is an 89-year-old -English male who was admitted to inpatient rehabilitation following gastric ulcer surgery repair. His medical problems included anorexia, chronic kidney disease, hyperkalemia, hyponatremia, perforated abdominal viscus and weakness. A complete description of his medical condition, history and medications can be found in his medical record. Neuropsychological consultation was requested to provide assistance in the assessment of cognitive and emotional status and provide recommendations and services. Prior to this most recent medical event, he was living with the assistance of his daughter. He has five children. His about 2 months prior to this medical event. His daughter has been assisting in his care since her . The patient reports difficulty with appetite, sleep, word finding and anxiety. He does not report depression. His daughter indicates that he has been repeating questions and having difficulty with cognitive functioning. She states that memory has been a problem for about 2 years. His daughter has been managing his medication. She had to take over medication because of inappropriate management. The patient also is reported to have been misplacing things and having intermittent hallucinations. He will occasionally call his daughter by his 's name. Repeating himself is also noted. The patient had a severe delirium that was attributed to the use of morphine. The patient is reported to have completed the 5th grade. 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 He is reported to have been independent with most ADLs. The patient is also described to have been driving. TECHNIQUES UTILIZED: Clinical interview, review of medical records, staff consultation and behavioral observation, mini mental status exam 2 standard version, category fluency and brief letter fluency assessment, and family [facility] [address] [place] [address] CONSULTATION Name: Arlene SCHWARTZ Room #: [address] [place] [address] [place] [facility].#: [id number] Admission: 03/20/19 Attend Phys: Joseluis Penn MD Discharge: Date of : 01/[birth year] Report #: [id number] interview -- daughter and clock drawing. EXAMINATION FINDINGS: The patient was alert and cooperative with the assessment. He was somewhat vague about the reason for his admission. He does not report auditory or visual hallucinations. There is no evidence of thought disorder or aphasia. He does not describe suicidal ideation. His performance on the MMSE 2 brief version is in the low average range with a raw score of 12/16, which is at the 14th percentile with a T score of 39. His performance on the MMSE 2 standard version was a T score of 39 that was at the 14th percentile. The patient had difficulty with immediate recall of 3 items after a brief time delay and distraction. Deficits were also noted with sustained concentration, ability to write a sentence and copy a simple geometric design. Brief letter fluency assessment was extremely low with a raw score of 0. The patient was unable to identify words beginning with a single letter. Category fluency improved to a T score 37, which is at the 10th percentile. It should be noted there was a significant perseverative responses to providing words for category fluency. Clock drawing was within normal limits. The patient is presenting with impairment in memory, sustained concentration, visual spatial organization and executive functioning. This type of presentation suggests a cognitive disorder with Alzheimer type features. DIAGNOSTIC IMPRESSION: 1. 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 2. Unspecified anxiety disorder. RECOMMENDATIONS: The patient will require assistance in the management of medication, finances and nutrition. He should not continue driving. He has a very supportive family and continued assistance with instrumental activities of daily living will likely be necessary. The use of compensatory strategies for areas of variability in cognitive functioning will also be of benefit. Thank you very much for allowing me to provide the consultation on this patient. By: [id number] Narciso Navarro, PhD /nt
[~2019-03-20 14:15] MED LIST changes: +ACETAMINOPHEN-1 EAC2 PO; +ASPIR 8181 MG PO; +CARAFATE 1 GM TA1 G1 PO; +CARVEDILOL3.125 MG PO; +FLOMAX0.4 MG PO; +LIORESAL 10 MG10 MG PO; +MOBIC15 MG PO; +NORVASC5 MG PO; +PROSCAR 5MG TABL5 MG PO; +PROTONIX40 M1 PO; +VALIUM5 MG PO; +ZOCOR20 MG PO
[2019-03-20 17:00] VITALS: BP 141/61
--- NOTE | 2019-03-20 17:01 | NUR ---
pt arrived to [facility] this afternoon for acute rehab. bedside nurse at bedside along with family. intro to dcp, team meeting and transition of care. will cont to follow as needed for dc needs.
--- NOTE | 2019-03-20 20:01 | NUR ---
Admit note: Patient discharged from [address] [place] [address] and transferred to rehab. Assumed care approx. 1555 this afternoon. Patient's daughter at bedside. Consents signed and admission education gone over with patient and patient's daughter. Patient was able to answer all questions appropriately, and knew his history fairly well without much help from his daughter. The patient stated his goal is to improve his ambulation while on rehab. Fall precautions in place.
[2019-03-20 20:16] VITALS: BP 166/67
--- NOTE | 2019-03-21 03:20 | NUR ---
assumed care at approx 1900 evening 03/20. pt lying in bed with head of bed elevated at change of shift. daughter at bedside staying the night sleeping on cot. pt alert and oriented x4, pleasant and cooperative, somewhat forgetful. pt incontinent of bowel on this manufacturing supervisor 2nd shift requiring bed change. herrera to dd with yellow urine to bag. pt now appears to be sleeping soundly with hourly rounding checks. bed alarm on and call light in reach. will continue to monitor.
[2019-03-21 06:17] LABS: HEMATOCRIT 29.7 % (42.0-52.0); HEMOGLOBIN 9.9 gm/dL (14.0-18.0); MCH 29.8 pg (26.0-34.0); MCHC 33.4 g/dL (28.0-37.0); MCV 89.2 fL (80.0-100.0); RBC 3.33 mil/uL (4.50-6.00); RDW 14.3 % (10.5-14.5); WBC 6.8 thou/uL (4.0-11.0)
[2019-03-21 06:33] LABS: CALCIUM 8.2 mg/dL (8.5-10.1); CREATININE 0.8 mg/dL (0.7-1.3); POTASSIUM 4.2 mmol/L (3.5-5.1)
[2019-03-21 07:30] VITALS: BP 157/76
--- NOTE | 2019-03-21 10:54 | NUR ---
ASSUMED CARE AT 0700. PATIENT IS ALERT AND ORIENTED X4. PATIENT FLETCHER'S, HARVEST FIELD TICKETER ARE EQUAL. LUNGS ARE CLEAR. ABD IS SOFT WITH BSX4. PATIENT HAS WHITLOCK TO DD, DRAINING MACKENZIE COLORED URINE. PATIENT HAS GRISEL IN PLACE DRAINING SEROSANGUOUS DRAINAGE ON RIGHT LOWER ABD. PATIENT HAS ABD INCISION CLOSED WITH MERISSA. DIET ADVANCED TO REGULAR. FALL AND SAFETY PROTOCOLS IN PLACE. DENIES ANY PAIN AT THIS TIME. WILL CONTINUE TO MONITER.
[2019-03-21 19:45] VITALS: BP 144/70
--- NOTE | 2019-03-22 02:57 | NUR ---
ASSUMED CARES AT 1900. PT A/O*4, SLEPT WELL THROUGH THE NIGHT. C/O ABDOMINAL PAIN, TYLENOL 325MG ADMINISTERED AT BEDTIME. VITALS REMAIN STABLE. ABDOMINAL INCISION REMAINS DRY AND MERISSA ARE INTACT. GRISEL DRAIN INTACT AND PATENT. WHITLOCK REMAINS INTACT AND PATENT, URINE IS LIGHT YELLOW CLEAR. WHITLOCK CLAMPED Q2H FOR 2HRS, PT STATES THAT HE DOES NOT FEEL THE URGE TO VOID EVEN WITH THE WHITLOCK CLAMPED. PT REMAINS INCONTINENT OF BOWEL, *3 SMALL BM'S THIS SHIFT, PT'S STATED THAT PT DOESN'T FEEL WHEN HE HAS TO MOVE HIS BOWELS AND THE STOOL JUST COMES OUT WHEN HE MOVES/STANDS. DRESSING ON LEFT FOREARM REMAINS DRY AND INTACT. PT REPOSITIONED Q2H. Q1H VISUAL CHECKS. CALL LIGHT WITHIN REACH. SPOUSE AT THE BEDSIDE. FALL PRECAUTIONS IN PLACE
[2019-03-22 07:50] VITALS: BP 146/64
--- NOTE | 2019-03-22 11:23 | NUR ---
WOUND CARE FOLLOW UP;THE [id number] INSCISIONS ARE INTACT, CLEAN AND DRY. THE THE LEFT ARE WOUND IS MARKEDLY IMPROVED AND CLOSE TO HEALING. PIGMENT SHOULD RETURN IN TIME. RECOMMEDATION; CONTINUE POC. DISCUSSED WITH ROSITA
--- NOTE | 2019-03-22 18:08 | NUR ---
ASSUMED CARE OF PT AT 0715. PT IS A&OX4 AND VITAL SIGNS ARE STABLE. GRISEL DRAIN TO RIGHT ABDOMEN IN PLACE AND DRAINING APPROPRIATELY WITH <20ML OUTPUT THIS SHIFT. MIDLINE SURGICAL INCISION WELL APPROXIMATED, DRY, MERISSA INTACT, NO EDEMA OR REDNESS NOTED, OPEN TO AIR. WHITLOCK CATHETER IN PLACE AND DRAINING APPROPRIATELY WITH LEG SECUREMENT. WHITLOCK CLAMPED EVERY 2 HOURS PER ORDERS FOR BLADDER TRAINING. PT REPORTED NO FEELINGS OF BLADDER FULLNESS OR URGE TO URINATE. HYDRATION AND NUTRITION ENCOURAGED THROUGHOUT SHIFT. OPTIFOAM TO LEFT FOREARM WITH TUBIGRIP C/D/I, ORDERS FOR DRESSING CHANGES M/W/F. PER DR. DICKEY NOTE PT IS TO BE ON LIQUID DIET FOR 14 DAYS POST OP. NURSING TO CLARIFY ACTUAL START DATE OF POST OP PERIOD (FIRST OR SECOND SURGICAL DATE). PT DENIES ABDOMINAL PAIN, NAUSEA, VOMITING, OR PAIN, BOWEL SOUNDS ACTIVE IN ALL QUADRANTS. PT DENIED PAIN AND PARTICIPATED IN SCHEDULED THERAPIES. FALL PRECAUTIONS IN PLACE AND NURSING WILL CONTINUE TO MONITOR.
[2019-03-22 20:35] VITALS: BP 132/69
--- NOTE | 2019-03-23 01:53 | NUR ---
ASSUMED CARES AT 1900. AWAKE, A/O*4. C/O PAIN AROUND ABDOMINAL INCISION, TYLENOL 325MG ADMINISTERED. VITALS REMAINED STABLE. ABDOMINAL INCISION REMAINS DRY AND MERISSA ARE INTACT, NO DRAINAGE. GRISEL DRAIN INTACT AND PATENT. WHITLOCK INTACT AND PATENT, CLAMPED Q2H, AT 0130 PT CALLED AND STATED THAT HE FELT LIKE VOIDING AND HAD AN INCONTINENT EPISODE, WHITLOCK UNCLAMPED TO ALLOW EMPTYING OF BLADDER AND CLAMPED AFTER 2HRS. PT REMAINS INCONTINENT OF BOWEL, STOOLS ARE LOOSE. IRRITATED SKIN UNDER SCROTUM AND AROUND ANUS, BARRIER CREAM APPLIED. PT REPOSITIONED Q2H. Q1H VISUAL CHECKS. CALL LIGHT WITHIN REACH. FALL PRECAUTIONS IN PLACE
[2019-03-23 07:30] VITALS: BP 146/63
--- NOTE | 2019-03-23 17:42 | NUR ---
ASSUMED CARE OF PT AT 0715. PT IS A&OX4 AND VITAL SIGNS ARE STABLE. MIDLINE SURGICAL INCISION TO ABDOMEN IS WELL APPROXIMATED, WITHOUT DRAINAGE, REDNESS, OR EDEMA, MERISSA IN PLACE. GRISEL DRAIN TO RLQ IS IN PLACE AND DRAINING APPROPRIATELY. DRESSING TO LEFT FOREARM CHANGED BY THIS NURSE IS C/D/I. WHITLOCK CATHETER TO BE REMOVED AFTER DINNER PER PT REQUEST TO AVOID INTERFERING WITH THERAPIES AND MEAL TIME. CATHETER CLAMPED Q2H THIS MORNING AND HAD URGE TO URINATE. PT EDUCATED ABOUT WHITLOCK REMOVAL AND POST REMOVAL PROCEDURES, EXPRESSED UNDERSTANDING, URINAL AT BEDSIDE. LOOSE BMX4 THIS SHIFT, PASSENGER LOCOMOTIVE ENGINEER CONSULTED AND RECOMMENDS ADDING BULKING AGENT TO PT MEDICATION ORDERS DUE TO LIQUID DIET PER DR. DICKEY. PT DENIED PAIN THIS SHIFT AND PARTICIPATED IN SCHEDULED THERAPIES. FALL PRECAUTIONS IN PLACE AND NURSING WILL CONTINUE TO MONITOR.
[2019-03-23 20:00] VITALS: BP 151/58
--- NOTE | 2019-03-23 23:34 | NUR ---
DCD WHITLOCK CATHETER WITHOUT DIFFICULTY. PT TOLERATED WELL.
--- NOTE | 2019-03-24 02:03 | NUR ---
assumed care at approx 1900 evening 03/23. pt alert and oriented x4, pleasant and cooperative. pt stated he had a good day with therapy. pt took hs meds with water tolerating well. pts herrera dcd and pt has voided twice in urinal approx 250ml each time. pt assisted with changing into gown at hs. pt incontinent of bm and also used bedpan to have loose bm. changed and applied cream. pt appears to be sleeping soundly with hourly rounding checks. bed alarm on and call light in reach. daughter also stays the night sleeping on cot in room. will continue to monitor.
[2019-03-24 08:00] VITALS: BP 160/60
--- NOTE | 2019-03-24 12:08 | NUR ---
ASSUMED CARE OF PT AT 0715. PT IS A&OX4 AND VITAL SIGNS ARE STABLE. SURGICAL MIDLINE INCISION IS WELL APPROXIMATED, WITHOUT REDNESS, DRAINAGE, OR EDEMA, MERISSA IN PLACE, OPEN TO AIR. GRISEL DRAIN IN PLACE TO RLQ DRAINING APPROPRAITELY. FOAM DRESSING TO LEFT FORARM C/D/I. PT URINATING PER URINAL APPROPRATELY POST VOID RESIDUALS LESS THAN 100ML. INCONTINENT OF BOWEL THIS MORNING, BOWEL WAS LOOSE. FIBER SUPPLEMENT GIVEN THIS MORNING. PT REPORTED NAUSEA DURING BREAKFAST, AND STATED THAT HE FELT LIKE IT WAS DUE TO EATING TOO FAST. PT TOOK A BREAK FROM EATING AND REPORTED THAT THE NAUSEA WENT AWAY. BOWEL SOUNDS ACTIVE IN ALL QUADRANTS, ABDOMEN SOFT, NON-TENDER, NON-DISTENDED. PT REPORTS NO PAIN, PARTICIPATED IN SCHEDULED THERAPIES. FALL PRECAUTIONS IN PLACE AND NURSING WILL CONTINUE TO MONITOR.
--- NOTE | 2019-03-24 19:19 | NUR ---
THIS NURSE CALLED TO PT ROOM AT APPROXIMATELY 1830. PT DAUGHTER REPORTED THAT PT WAS EXPERIENCING NAUSEA AND HAD 2 EPISODES OF EMESIS. EMESIS APPEARED TO CONSIST OF ENSURE FROM PT DINNER. APPROXIMATELY 100ML OF EMESIS RECORDED. PT REPORTED ABDMINAL PAIN, ABDOMEN FIRM, LESS ACTIVE COMPAIRED TO MORNING ASSESSMENT. B/P 195/86, PULSE 83, 26 RESP, TEMP 98.5, O2 96% ON ROOM AIR. ABDOMINAL SURGICAL SITE WELL APPROXIMATED, MERISSA IN PLACE. PT INSTRUCTED TO SPLIT WHEN VOMITING. DR. DICKEY OFFICE CALLED, TRACK AND FIELD COACH PROVIDER RETURNED CALL. ORDERS FOR ABDOMINAL X-RAY, ZOFRAN ODT 4MG SUBLINGUAL ONETIME, AND PT TO BE NPO UNTIL REEVALUATED BY PROVIDER. DAUGHTER AND PT EDUCATED ABOUT ORDERS. COMMUNICATED UNDERSTANDING. X-RAY COMPLETED AT THIS TIME, ZOFRAN GIVEN, PT IS RESTING IN BED, NURSING WILL CONTINUE TO MONITOR.
[2019-03-24 20:00] VITALS: BP 144/78
[2019-03-24 20:51] LABS: HEMATOCRIT 25.8 % (42.0-52.0); HEMOGLOBIN 9.1 gm/dL (14.0-18.0); MCH 30.5 pg (26.0-34.0); MCHC 35.1 g/dL (28.0-37.0); RBC 2.97 mil/uL (4.50-6.00); RDW 13.6 % (10.5-14.5)
[2019-03-24 21:06] LABS: CALCIUM 7.7 mg/dL (8.5-10.1); CREATININE 0.8 mg/dL (0.7-1.3)
[2019-03-24 22:18] LABS: CALCIUM 7.6 mg/dL (8.5-10.1); CREATININE 0.7 mg/dL (0.7-1.3)
--- NOTE | 2019-03-25 01:57 | NUR ---
assumed care at approx 1900 evening 03/24. pt lying in bed with head of bed elevated. pt somewhat drowsy and lethargic however able to answer questions appropriately. daughter concerned about her fathers declining condition stating he is grabbing for things in the night and confused. vss. DIGITAL ACCOUNT DIRECTOR paged and labs ordered. NA 114, critical value. orders recd and IV infusing at present. pt incontinent of bowel and bladder. assisted pt with cleaning of linen and up to bathroom -toilet to finish bm. pt now back to bed with clean linen. daughter at bedside. bed alarm on and call light in reach. will continue to monitor.
[2019-03-25 05:28] LABS: CALCIUM 7.9 mg/dL (8.5-10.1); CREATININE 0.7 mg/dL (0.7-1.3); POTASSIUM 3.8 mmol/L (3.5-5.1)
[2019-03-25 07:15] VITALS: BP 142/57
--- NOTE | 2019-03-25 10:18 | NUR ---
ASSUMED CARE AT 0700. PATIENT IS ALERT AND ORIENTED X4, DROWSEY. PATIENT LUNGS ARE CLEAR AND DEMINISHED. ABD INCISION IS CLOSED WITH MERISSA THAT ARE OPEN TO AIR. PATIENT HAS GRISEL DRAIN IN HIS RIGHT LOWER QUAD. BSX4. FULL LIQUID DIET RESUMED. PATIENT HAD SMALL AMOUNT OF EMESIS OF HIS FIBER. PATIENT HAS IVF OF NS AT 75 CC/HR. IV IS IN HIS LEFT FORARM. IV SITE WITHOUT REDNESS OR SWELLING. PATIENT VOIDS PER URINAL. DAUGHTER IN ROOM. PATIENT HAS BEEN INCONTINENT OF B & B AT TIMES. FALL AND SAFETY PROTOCOLS IN PLACE. DENIES ANY PAIN AT THIS TIME. REFUSED ANY NAUSEA MEDS. CONTINUES TO PROGESS VERY SLOWLY TOWARDS D/C GOALS. WILL CONTINUE TO MONITER
[2019-03-25 13:44] LABS: URINE BILIRUBIN NEGATIVE (Negative); URINE BLOOD NEGATIVE (Negative); URINE CLARITY CLEAR; URINE COLOR YELLOW; URINE GLUCOSE-RANDOM* NEGATIVE (Negative); URINE KETONES NEGATIVE (Negative); URINE LEUKOCYTES NEGATIVE (Negative); URINE NITRITE NEGATIVE (Negative); URINE PROTEIN (DIPSTICK) NEGATIVE (Negative); URINE SPECIFIC GRAVITY 1.015 (1.005-1.035); URINE UROBILINOGEN 0.2 E.U./dl (0.2-1.0)
[2019-03-25 16:39] LABS: CALCIUM 7.8 mg/dL (8.5-10.1); CREATININE 0.7 mg/dL (0.7-1.3); POTASSIUM 4.3 mmol/L (3.5-5.1)
[2019-03-25 20:10] VITALS: BP 155/71
[2019-03-25 20:15] VITALS: BP 155/71
--- NOTE | 2019-03-26 00:12 | NUR ---
PT ASSESSMENT COMPLETED AND VSS. MEDS GIVEN ORDERED AND WELL TOLERATED. PT COMPLETED HIS IV FLUIDS THIS EVENING. SUPPORTIVE FAMILY AT BEDSIDE. TURNING Q 2 HOURS. PT VOIDED LARGE AMOUNT OF YELLOW URINE. SLEEPING WELL. WILL CONTINUE TO MONITOR FREQUENTLY.
--- NOTE | 2019-03-26 05:25 | NUR ---
PT HAD 10 ML FROM DRAIN THIS AM.
[2019-03-26 06:25] LABS: HEMATOCRIT 25.7 % (42.0-52.0); MCH 30.5 pg (26.0-34.0); MCHC 34.9 g/dL (28.0-37.0); MCV 87.3 fL (80.0-100.0); PLATELET COUNT 367 thou/uL (150-400); RBC 2.94 mil/uL (4.50-6.00); RDW 13.8 % (10.5-14.5); WBC 4.7 thou/uL (4.0-11.0)
[2019-03-26 06:39] LABS: ALBUMIN 2.1 g/dL (3.4-5.0); CALCIUM 8.2 mg/dL (8.5-10.1); CREATININE 0.8 mg/dL (0.7-1.3); MAGNESIUM 1.7 mg/dL (1.8-2.4); PHOSPHORUS 2.6 mg/dL (2.5-4.9)
[2019-03-26 07:44] LABS: ABSOLUTE NEUTROPHILS 2.5 thou/uL (1.4-8.2); ANISOCYTOSIS 1+; HYPOCHROMASIA 1+
[2019-03-26 08:28] VITALS: BP 144/59
--- NOTE | 2019-03-26 11:51 | NUR ---
WOUND CARE FOLLOW UP; THE LEFT FOREARM IS HEALED. THE ABDOMENAL INC(S) ARE INTACT AND WILL BE REMOVED TODAY. RECOMMEDNATIONS; CONTINUE LEFT FOREARM DRESSING ORDERS STAFF PRESENT
[2019-03-26 17:48] VITALS: BP 161/65
--- NOTE | 2019-03-26 19:12 | NUR ---
PATIENT ALERT AND ORIENTED WITH DAUGHTER AND SON AT BEDSIDE FOR MOST ALL OF DAY. SON SLEEPS IN ROOM DURING THE NIGHT. PATIENT FEELING BETTER THROUGHOUT THE DAY AND FELT NAUSEA AFTER LUNCH, BUT MINIMAL EMESIS. TWO BOWELS MOVEMENTS TODAY. REMOVED MERISSA AND GRISEL DRAIN AND ADVANCE DIET TO REGULAR CHOPPED. CIRCUS SUPERVISOR PRESCRIBED REMERON FOR APPETITE.
[2019-03-26 19:27] VITALS: BP 154/66
--- NOTE | 2019-03-26 22:41 | NUR ---
PT ASSESSMENT COMPLETED AND VSS. MEDS GIVEN ORDERED AND WELL TOLERATED. SUPPORTIVE SON AT BEDSIDE. TURNING ORDERED. BARRIER CREAM APPLIED TO COCCYX. FLUID RESTRICTION FOLLOWED. VOIDING LARGE AMOUNT OF YELLOW URINE IN URINAL AND INC AT TIMES. SLEEPING WELL. PT STATES THAT HE IS FEELING STRONGER TODAY. WILL CONTINUE TO MONITOR FREQUENTLY.
[2019-03-27 06:13] LABS: ALBUMIN 2.3 g/dL (3.4-5.0); CALCIUM 8.2 mg/dL (8.5-10.1); CREATININE 0.9 mg/dL (0.7-1.3); PHOSPHORUS 2.6 mg/dL (2.5-4.9); POTASSIUM 3.5 mmol/L (3.5-5.1)
--- NOTE | 2019-03-27 07:51 | NUR ---
ASSUMED CARE AT 0700. PATIENT IS ALERT AND ORIENTED X4. PATIENT FLETCHER'S, INSTRUCTIONAL SERVICES LIBRARIAN ARE EQUAL. LUNGS ARE CLEAR. ABD IS SOFT WITH BSX4. PATIENT HAS S.L. IN HIS LEFT FORARM. NO REDNESS OR SWELLING NOTED AT SITE. PATIENT IS VOIDING MACKENZIE COLORED URINE. PATIENT IS UP WITH ASSIST OF 1 STAFF, GAIT BELT AND WALKER. FALL AND SAFETY PROTOCOLS IN PLACE. DENIES PAIN AT THIS TIME. CONTINUES TO PROGESS TOWARDS D/C GOALS. WILL CONTINUE TO MONITER.
--- NOTE | 2019-03-27 12:32 | NUR ---
team meeting, [facility]. initial 24h supervision, dc 26th with [facility] ( pt, ot, st and nursing). no dme needs.
[2019-03-27 14:36] LABS: MAGNESIUM 1.9 mg/dL (1.8-2.4)
[2019-03-27 19:35] VITALS: BP 160/70
--- NOTE | 2019-03-28 00:19 | NUR ---
assumed care at approx 1900 evening 03/27. pt lying in bed with head of bed elevated dozing off and on. son at bedside staying the night. pt apporpriate and cooperative, quiet with flat affect. pt denies pain. pt took hs meds with water tolerating well. pt appears to be sleeping soundly with hourly rounding checks. bed alarm on and call light in reach. will continue to monitor.
[2019-03-28 06:27] LABS: ALBUMIN 2.4 g/dL (3.4-5.0); CALCIUM 8.4 mg/dL (8.5-10.1); CREATININE 1.1 mg/dL (0.7-1.3); PHOSPHORUS 2.7 mg/dL (2.5-4.9); POTASSIUM 3.9 mmol/L (3.5-5.1)
[2019-03-28 08:00] VITALS: BP 155/81
--- NOTE | 2019-03-28 09:50 | NUR ---
WOUND CARE FOLLOW UP; THE PATIENTS MERISSA WERE REMOVED THE SITE IS INTACT. THE LEFT FOREARM IS HEALED. RECOMMENDATIONS; CONTINUE WITH CURRENT ORDERS. STAFF PRESENT
--- NOTE | 2019-03-28 10:13 | NUR ---
ASSUMED CARE AT 0700. PATIENT IS ALERT AND ORIENTED X4. PATIENT FLETCHER, INVOICE MACHINE OPERATOR ARE EQUAL. LUNGS ARE CLEAR. ABD IS SOFT WITH BSX4. ABD INCISION CLEAN AND DRY. OPTIFORM TO OLD GRISEL SITE DRY AND INTACT. PATIENT IS VOIDING PER URINAL. PATIENT HAD BREAKFAST IN BED. FALL AND SAFETY PROTOCOLS IN PLACE. DENIES ANY PAIN AT THIS TIME. CONTINUES TO PROGRESS TOWARDS D/C GOALS. IV SITE IN LEFT FORARM PATIENT AND INTACT. SITE WITHOUT REDNESS OR SWELLING. WILL CONTINUE TO MONITER.
--- NOTE | 2019-03-28 12:00 | NUR ---
DISCHARGE PLANNING: PATIENT'S SON WOULD LIKE TO PICK HIM UP ON TUESDAY AT 11AM. COORDINATING GRAD DAY WITH THE TEAM TO ENSURE THAT HE WILL BE READY TO GO BY THAT TIME.
--- NOTE | 2019-03-28 15:00 | NUR ---
pt daughter had question about bsc, information provided by bedside nurse bsc not covered by insurance, cm education that can get one at [facility], on line.
[2019-03-28 19:40] VITALS: BP 130/67
--- NOTE | 2019-03-29 02:40 | NUR ---
assumed care at approx 1900 evening 03/28. pt lying in bed with head of bed elevated resting comfortably, denies complaints. pt voiding per urinal without difficulty. pt took hs meds with water tolerating well. pt appears to be sleeping soundly with hourly rounding checks. assist with turning q2hrs. bed alarm on and call light in reach. will continue to monitor.
[2019-03-29 07:25] VITALS: BP 134/62
--- NOTE | 2019-03-29 11:03 | HC ---
[facility] [place] [address] CONSULTATION Name: Arlene SCHWARTZ Room #: 506-1 [place] ..#: [id number] Admission: 03/20/19 Attend Phys: Joseluis Penn MD Discharge: Date of : 01/26/[birth year] Report #: [id number] THIS REPORT FOR: //name// CC: Joseluis Mirza DATE OF SERVICE: 03/20/2019 NEPHROLOGY CONSULTATION The initial date of admission 03/08/2019 to this hospital and admitted I believe 03/20/2019 to the rehab floor. REASON FOR CONSULTATION: Hyponatremia. HISTORY OF PRESENT ILLNESS: This 89-year-old gentleman, previously with a history of hypertension and back pain. Recently had a salmonella infection apparently earlier this year. He was admitted to the hospital with poor appetite, was found to be acutely ill with an acute abdomen and free air. He underwent exploratory laparotomy and was found to have a gastric perforation, had surgery, then had a gastric leak and had reoperation eventually after a couple of weeks being admitted up here to rehabilitation. He has been somewhat sluggish and weak. He has had a poor appetite. Mental status worsened and serum sodium which had been 137, had dropped over several days to a level of 114. PAST MEDICAL HISTORY: Hypertension, back pain, gastric perforation all as outlined above. HOME MEDICATIONS: At time of admission included lisinopril, hydrochlorothiazide, Flexeril, diazepam, hydrocodone and ibuprofen. ALLERGIES: No known drug allergies. SOCIAL HISTORY: No cigarettes or alcohol. REVIEW OF SYSTEMS: GENERAL: Difficult to obtain as the patient is rather lethargic up here on the rehab floor. EYES: His vision apparently is okay. ENT: No trouble with swallowing reported. ENDOCRINE: No diabetes or thyroid disease. RESPIRATORY: Does not have any problems with shortness of air. CARDIAC: He is not having chest pain or swelling. GASTROINTESTINAL: He has had ongoing persistent nausea at times, occasional [facility] [address] [place] [address] CONSULTATION Name: LANAArlene Room #: 506-1 [facility] [place] [facility]#: [id number] Admission: 03/20/19 Attend Phys: Joseluis Penn MD Discharge: Date of : 01/26/[birth year] Report #: [id number] vomiting. GENITOURINARY: No dysuria or hematuria. NEUROLOGIC: Generalized sluggishness and weakness. No history of stroke. MUSCULOSKELETAL: Generalized weakness. PHYSICAL EXAMINATION: VITAL SIGNS: This is an ill-appearing gentleman. He is arousable and oriented. SKIN: Shows reasonably good turgor. SKELETAL: Shows him to be well developed, well nourished. No amputations. HEENT: Extraocular movements appear to be full. No scleral icterus. Mucous membranes are moist. Tongue, buccal mucosa appeared to be benign. NECK: Supple, without lymphadenopathy. CHEST: Clear to auscultation. HEART: Regular. ABDOMEN: Soft and nontender. EXTREMITIES: Show no edema. NEUROLOGIC: He moves all extremities. He is weak and lethargic, but oriented. LABORATORY DATA: Urine sodium is 20 with urine creatinine of 24. Urine osmolarity is pending. Urinalysis is pending. TSH is normal. The hemoglobin is 9.1 and platelets of 405. Sodium currently is 118, potassium 3.8, chloride 83, bicarbonate 29, BUN 11, creatinine 0.7. ASSESSMENT AND PLAN: 1. He has hyponatremia. Serum osmolarity is pending. Almost certainly hyperosmolar syndrome and has not had elevated total proteins. 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 He has gotten some saline, which we will continue and finish up for volume repletion. I will give him some salt pills to try and correct his hyponatremia resuming 3% in case we needed. I will put him on some fluid restriction and hopefully he will eat better, we can limit his fluids a bit. Once we know his urine osmolarity, we will help guide our treatment better. 2. Status post perforated gastric ulcer requiring 2 surgeries. 3. History of hypertension. <ELECTRONICALLY SIGNED> By: Sinan Paz MD 03/29/19 1103 [id number] Sinan Paz MD /nt
--- NOTE | 2019-03-29 12:19 | H ---
[facility] [place] [address] HISTORY AND PHYSICAL Name: Arlene SCHWARTZ Room #: 506-1 ADM IN ..#: [id number] Admission: 03/20/19 Attend Phys: Joseluis Penn MD Discharge: Date of : [birth year] Report #: [id number] THIS REPORT FOR: //name// CC: Joseluis Mirza DATE OF SERVICE: 03/20/2019 POSTADMISSION PHYSICIAN EVALUATION HISTORY OF PRESENT ILLNESS: The patient was seen by me in consultation earlier, has now been medically cleared and admitted for acute in-hospital inpatient rehabilitation. Please see the full admission note dictation. I agree with the physical examination as noted in the history and physical and as per my examination today. He still has the GRISEL tube in place and currently has the Andrea catheter. He has generalized weakness and we will be working on improving his strength and endurance. His involved daughter is staying in a cot at his bedside. From a postadmission physician evaluation perspective, there are no relevant changes since the preadmission screening. Please see the above review of prior and current medical and functional conditions and comorbidities. Please see the patient's previous and current functional status. As far as risk of complications, the patient has multiple medical comorbidities as noted above. The initial plan of care involves the interdisciplinary acute inpatient rehabilitation program. Measurable functional goals would be for the patient to become modified independent with transfers, mobility and ADLs, so he can hopefully return back to his prior living situation. Prognosis is reasonably good with estimated length of stay probably around 7-10 days and potentially longer if needed. Potential barriers would include his multiple medical comorbidities and decreased functional status. The patient meets diagnostic criteria for an acute in-hospital inpatient rehabilitation stay. He does have the toxic metabolic encephalopathy and we will have speech therapy involved as far as further assessing his cognitive deficits as well as neuropsychology. He meets the medical necessity criteria. He does have the tolerance for therapies and we will be having PT and OT work with him as well as far as maximizing his functional independence with mobility and ADLs. He does have appropriate discharge goals back to the home setting. <ELECTRONICALLY SIGNED> By: Joseluis Penn MD 03/29/19 1219 [id number] Joseluis Penn MD /nt
--- NOTE | 2019-03-29 12:19 | PLAN ---
[facility] [place] [address] REHAB UNIT PLAN OF CARE Name: Arlene SCHWARTZ Room #: 506-1 ADM IN M.R.#: [id number] Admission: 03/20/19 Attend Phys: Joseluis Penn MD Discharge: Date of : [birth year] Report #: [id number] THIS REPORT FOR: //name// CC: Joseluis Mirza DATE OF SERVICE: 03/22/2019 SUBJECTIVE: The patient is seen back today in followup. He is in no distress. Last recorded temperature 98.1, pulse 83, respirations 18, blood pressure 144/70. The patient is alert. He is pleasant. He continues with the GRISEL drain intact. Andrea is in place and they did try some clamping, but he did not feel the urge to void even with a clamp. He has been working in therapies with transfers, min assist. Gait min assist 250 feet with a front-wheeled walker. In occupational therapy, lower body dressing is min assist. Speech therapy, he has [id number] cognitive deficits with severe memory deficits. ASSESSMENT: 1. Toxic metabolic encephalopathy. 2. Perforated gastric ulcer, status post repair. 3. Peritonitis with Infectious Disease involved. 4. Generalized weakness and debilitation. 5. Chronic kidney disease stage 3. 6. Degenerative joint disease. 7. Urinary retention with Andrea catheter. He has a history of BPH. He is on Flomax. PLAN: The overall plan of care is based on the preadmission screen, post-admission physician evaluation and information garnered from therapy assessments. 1. Estimated length of stay is probably at least 7-10 days and potentially longer if warranted. 2. Medical prognosis is reasonably good. 3. Anticipated interventions includes the interdisciplinary acute inpatient rehabilitation program. 4. Anticipated functional outcomes would be for the patient to become modified independent with transfers, mobility and ADLs as well as cognition, so he can return back to the home setting. 5. Discharge destination would be back to the home setting where he lives with his daughter. 6. Expected therapy by discipline includes PT, OT and speech 1 hour per day [address] [address] REHAB UNIT PLAN OF CARE Name: Arlene SCHWARTZ Room #: 506-1 [facility] IN .R.#: [id number] Admission: 03/20/19 Attend Phys: Joseluis Penn MD Discharge: Date of : [birth year] Report #: [id number] each five days a week throughout the duration of the acute inpatient rehabilitation stay. <ELECTRONICALLY SIGNED> By: Joseluis Penn MD 03/29/19 1219 [id number] Joseluis Penn MD /nt
--- NOTE | 2019-03-29 16:47 | NUR ---
I have reviewed the documentation by GIN ROWAN from 03/29/19 to 03/29/19 and I concur with it. DAY RICHARDSON, PT, DPT
--- NOTE | 2019-03-29 18:48 | NUR ---
ASSUMED CARE OF PT AT APPROX 0700. PT IS ALERT AND ORIENTED X4. DENIES PAIN AND SOA. VSS, ASSESSMENT CHARTED. PT COOPERATIVE AND STATES IS FEELING MUCH BETTER TODAY AND EVEN HAS AN APPETITE. UPDATED ON POC. NO CURRENT CONCERNS. NAD NOTED. WILL CONTINUE TO MONITOR.
[2019-03-29 20:28] VITALS: BP 148/72
--- NOTE | 2019-03-30 02:44 | NUR ---
ASSUMED CARES AT 1900. PT AWAKE, ALERT AND ORIENTED*4. DENIES PAIN. VITALS REMAIN STABLE. PT SLEPT FROM 22OO AND SLEPT WELL. VOIDING PER URINAL. UP TO THE BATHROOM WITH SBA, GAITBELT AND WALKER AND TOLERATED WELL. Q1H VISUAL CHECKS. CALL LIGHT WITHIN REACH. FALL PRECAUTIONS IN PLACE
[2019-03-30 07:38] LABS: ALBUMIN 2.3 g/dL (3.4-5.0); CALCIUM 8.4 mg/dL (8.5-10.1); CREATININE 0.9 mg/dL (0.7-1.3); PHOSPHORUS 3.6 mg/dL (2.5-4.9); POTASSIUM 3.6 mmol/L (3.5-5.1)
[2019-03-30 08:58] LABS: HEMATOCRIT 31.1 % (42.0-52.0); HEMOGLOBIN 10.2 gm/dL (14.0-18.0)
--- NOTE | 2019-03-30 13:32 | NUR ---
WOUND CARE F/U; ASSESSMENT OF THE LEFT ARM WOUND RE; IV INFILTRATION. THE WOUND IS HEALED, PIGMENT IS RETURING WITH HEALTHY NEW SKIN OBSERVED. RECOMMENDATIONS; D/C DRESSING CHANGES. COVER WITH A TUBIGRIP FOR PROTECTION. DISCUSSED WITH ROSITA
--- NOTE | 2019-03-30 16:32 | NUR ---
I have reviewed the documentation by GIN ROWAN from 03/30/19 to 03/30/19 and I concur with it. DAY RICHARDSON
[2019-03-30 19:27] VITALS: BP 112/58
--- NOTE | 2019-03-30 21:04 | NUR ---
ASSUMED CARE OF PT AT 0715. PT IS A&OX4 AND VITAL SIGNS ARE STABLE. PT DENIES PAIN AND PARTICIPATED IN SCHEDULED THERAPIES. COMPLIANT WITH 1500ML FLUID RESTRICTION. SURGICAL SITE WELL APPROXIMATED AND OPEN TO AIR, NO REDNESS, EDEMA, OR DRAINAGE. OLD GRISEL DRAIN SITE COVERED WITH OPTIFOAM, C/D/I. FALL PREACAUTIONS IN PLACE AND NURSING WILL CONTINUE TO MONITOR.
--- NOTE | 2019-03-31 02:58 | NUR ---
assumed care at approx 1900 evening 03/30. pt lying in bed with head of bed elevated resting comfortably. pt alert and oriented x4, pleasant and cooperative. pt took hs meds with water tolerating well. pt voiding per urinal. pt appears to be sleeping soundly with hourly rounding checks. bed alarm on and call light in reach. will continue to monitor.
[2019-03-31 07:45] VITALS: BP 143/77
[2019-03-31 19:30] VITALS: BP 152/70
--- NOTE | 2019-03-31 20:51 | NUR ---
ASSUMED CARE OF PT AT 0715. PT IS A&OX4 AND VITAL SIGNS ARE STABLE. PT DENIES PAIN, PARTICIPATED IN SCHEDULED THERAPIES. CONTINUES TO STRUGGLE WITH NUTRITIONAL INTAKE. ENCOURAGED PT TO HAVE PROTEIN DENSE FOODS WHEN POSSIBLE. MIDLINE ABDOMINAL INCISION WELL APPROXIMATED, NO REDNESS, EDEMA OR DRAINAGE. OPTIFOAM OVER OLD GRISEL DRAIN SITE IS C/D/I, SITE W/O REDNESS, DRAINAGE, OR EDEMA. ORDERS RECEIVED FROM D/C ON TUESDAY. FALL PRECAUTIONS IN PLACE AND NURSING WILL CONTINUE TO MONITOR.
--- NOTE | 2019-04-01 01:52 | NUR ---
PATIENT ASSESSED AND IS ALERT X 4. SKIN WARM AND DRY. RESP EVEN AND UNLABORED.HAS A MIDLINE INCISION THAT HAS OPTIFOAQM ON IT. NO DRANAGE NOTED. PAIN MEDICATION GIVEN WITH GOOD RELIEF. UP WITH 1 PERSON ASSIST WITH WALKER AND GAIT BELT. VOIDS WELL IN BATHROOM. REFUSES TO TURN IN BED, BUT DOES GET OUT OF BED FOR BATHROOM. LOWER ABDOMEN ON RIGHT SIDE HAS DRESSING ON IT. DRY AND INTACT.LUNGS CTA-DISM. NO EDEMA NOTED. TAKES DIET WELL. CONT PLAN OF CARE. NO IV SITE.
[2019-04-01 08:00] VITALS: BP 107/54
--- NOTE | 2019-04-01 11:24 | NUR ---
ASSUMED CARE AT 0700, SHIFT ASSESSMENT DONE, VSS, DENIES ANY PAIN, NAUSEA, VOMITING. UP WITH STANDBY, HAD A SMALL BM TODAY. WILL CONTINUE TO ASSESS AND ASSIST WITH ADLs NEEDED.
--- NOTE | 2019-04-01 13:44 | NUR ---
ASSUMED CARE OF PT MID SHIFT. INTRO'D SELF TO PT, SHOWED DEMO GLASS SILVERER LIGHT USE, A&0X3-4, SWEET DEMEANOR, GAVE BLANKET FROM WARMER, DENIES PAIN AT THIS TIME, WILL LET HIM KNOW ABOUT TYLENOL BEING AVAILABLE. 1500 ML FLUID RESTRICTION, REPORTED OFF PT DRINKING MINIMALLY. GAVE SPRITE AND WATER TO ENCOURAGE ALSO ENCOURAGED HIM TO USE CALL LIGHT FOR ANY NEEDS
[2019-04-01 19:51] VITALS: BP 113/63
--- NOTE | 2019-04-02 04:58 | NUR ---
ASSUMED PT CARE AROUND 1900. PT WAS ORIENTED X4 UPON INITIAL ASSESSMENT. PT HAS BECOME MORE CONFUSED DURING THE NIGHT, BUT IS ABLE TO BE REORIENTED. PT IS IMPULSIVE AT TIMES WHEN HE NEEDS TO VOID. PT VOIDS VIA URINAL W/ SOME ASSISTANCE. UP TO BTR A FEW TIMES DURING THE NIGHT. TOLERATED WELL. PT DID NOT SLEEP MUCH TONIGHT. FALL PRECAUTIONS IN PLACE. PROGRESSING SLOWLY TOWARD POC GOALS. WILL CONTINUE TO MONITOR FURTHER.
[2019-04-02] MEDS ORDERED: TYLENOL325 MG PO (08:09)
[2019-04-02] MEDS ORDERED: REMERON15 MG PO (08:09)
--- NOTE | 2019-04-02 09:39 | NUR ---
cm visited with lc rt who pcp was and chcs for hh needs " gregg hall, # [phone], never had hh so that is alright with me"/lc. anticipated dc home today with chcs, initial 24h supervision. pt daughter going to pick him up.
[2019-04-02 09:43] VITALS: BP 113/63
[2019-04-02 10:09] LABS: HEMATOCRIT 31.8 % (42.0-52.0); HEMOGLOBIN 10.6 gm/dL (14.0-18.0); MCH 29.9 pg (26.0-34.0); MCHC 33.3 g/dL (28.0-37.0); MCV 89.6 fL (80.0-100.0); RBC 3.54 mil/uL (4.50-6.00); WBC 6.5 thou/uL (4.0-11.0)
[2019-04-02 10:18] LABS: CALCIUM 8.7 mg/dL (8.5-10.1); CREATININE 1.1 mg/dL (0.7-1.3)
[2019-04-02 11:18] VITALS: BP 136/54
--- NOTE | 2019-04-02 11:33 | NUR ---
ASSUMED CARE OF PT AT 0715. PT IS A&OX4 AND VITAL SIGNS ARE STABLE. NIGHT RN REPORTS PT WAS MORE CONFUSED AT NIGHT AND SEEMS HE HAS VISUAL HALLUCINATION SEEN SOMEONE. PARTICIPATED IN SCHEDULED THERAPIES THIS AM. MIDLINE ABDOMINAL INCISION WELL APPROXIMATED, NO REDNESS, EDEMA OR DRAINAGE. OPTIFOAM OVER OLD GRISEL DRAIN SITE IS C/D/I, SITE W/O REDNESS, DRAINAGE, OR EDEMA. LABS DRAW D/T CONFUSION. NA 131. MASON AWARE AND SAID PT IS OK TO GO HOME TODAY. SON AT BEDSIDE CONCERNS ABOUT PT'S TALKING AND DREAMING WHEN PT CLOSES HIS EYE AND REQUESTS TO TALK TO MASON. MASON WAS NOTIFIED. PT C/O NECK PAIN THIS AM 5/10 WHEN HE WAS UP WITH THERAPIST. PRN TYLENOL GIVEN. DENIES PAIN NOW. MEDS GIVEN, REASSESSMENT PER CHART. PT WILL BE DISCHARGE AFTER LUNCH. FALL PRECAUTIONS IN PLACE AND NURSING WILL CONTINUE TO MONITOR.
--- NOTE | 2019-04-02 15:01 | NUR ---
I have reviewed the documentation by GIN ROWAN from 04/02/19 to 04/02/19 and I concur with it. DAY RICHARDSON
[2019-04-02 19:38] VITALS: BP 131/54
--- NOTE | 2019-04-03 04:34 | NUR ---
PATIENT ALERT AND ORIENTED X4. DENIES PAIN. SLEPT MOST OF NIGHT. PATIENT STATES OBJECTS APPEAR FARTHER AWAY THAN THEY ARE. AWAITING TO GO HOME TODAY.
--- NOTE | 2019-04-03 08:35 | NUR ---
ASSUME PT CARE AT 0700. NIGHT NURSE REPORT PT WAS FINE. NO HALLUCINATION SYMPTOM NOTED. NOT ABLE TO OBTAIN UA. TALKED TO PT THIS AM. HE SAID HE DIDN'T SLEEP GOOD. STILL HAS HALLUCINATION AND ADMITS HE STILL SEE THING. SON AT BEDSIDE AND SAID HE SAW HIS DAD HAS SOME SYMPTOM. DISCUSSED WITH SON WHAT DR. JOSEPH'S SUGGESTED. OBTAIN UA AND GIVE PRN RISPERDONE. BOTH PT AND SON AGREE TO TAKE PRN RISPERDONE. UA OBTAINED AND SENT TO LAB. PT ATE 50% BREAKFAST. MORNING MEDS GIVEN. OFFERED SUPPORTIVE CARE. PT DENIES PAIN, N/V, SOB. WILL CONTINUE TO MONITOR.
[2019-04-03 09:05] LABS: URINE BILIRUBIN NEGATIVE (Negative); URINE BLOOD NEGATIVE (Negative); URINE CLARITY CLEAR; URINE COLOR YELLOW; URINE GLUCOSE-RANDOM* NEGATIVE (Negative); URINE KETONES NEGATIVE (Negative); URINE LEUKOCYTES NEGATIVE (Negative); URINE NITRITE NEGATIVE (Negative); URINE PROTEIN (DIPSTICK) NEGATIVE (Negative); URINE UROBILINOGEN 0.2 E.U./dl (0.2-1.0)
[2019-04-03] MEDS ORDERED: REMERON15 MG PO (09:26)
[2019-04-03] MEDS ORDERED: RISPERIDONE 00.25 MG PO (10:27)
[2019-04-03 11:34] VITALS: BP 113/63
--- NOTE | 2019-04-03 16:56 | H ---
[facility] [place] [address] HISTORY AND PHYSICAL Name: Arlene SCHWARTZ Room #: 506-1 [facility] IN ..#: [id number] Admission: 03/20/19 Attend Phys: Joseluis Penn MD Discharge: 04/03/19 Date of : [birth year] Report #: [id number] THIS REPORT FOR: //name// CC: Joseluis Penn Olegario Luongis DATE OF SERVICE: 03/20/2019 HISTORY OF PRESENT ILLNESS: This is an 89-year-old [place] gentleman who presented to the hospital with intermittent lower abdominal pain. He was found to have a perforated gastric ulcer and underwent laparoscopic Momo patch on 03/09/2019. He was taken back to the OR on 03/13/2019 for exploratory lap, gastric ulcer biopsy, and placement of an NG tube as he had pulled his out the day before. His NG was able to be discontinued. He remained n.p.o. for several days and was given nutritional support of TPN. On 03/19/2019, he underwent upper GI series. There was no further leak and he was placed on a full liquid diet. He has tolerated his diet. Pain is well controlled. He has very little nausea. He is passing gas and he had a bowel movement yesterday. Due to his prolonged hospital stay, medical comorbidities and debility, he is now being admitted to acute inpatient rehab for further therapies. Today, the patient denies any dizziness or headache. He denies cough, shortness of air, chest pain as noted above. Denies nausea, vomiting, constipation or abdominal pain. He denies lower extremity edema. He continues with a Andrea catheter. PAST MEDICAL HISTORY: BPH, GERD, hypertension, degenerative joint disease of multiple joints, back pain, chronic kidney disease stage 3, anemia, cholecystectomy, history of lumbar fusion of L3 and L5. HABITS: The patient lives in a house with his daughter who has recently moved in with him. He was independent with his ADLs. His daughter assists with IADLs. He has a cane and most recently started using a walker at home. He has one step to enter the house. He still drives. He is right hand dominant. ALLERGIES: MORPHINE. CURRENT MEDICATIONS: Senna p.r.n., Colace 100 mg twice a day p.r.n., mag oxide 10 mL daily p.r.n., Tylenol 650 q.4 hours p.r.n., hydralazine 10 mg q.4 hours p.r.n., fentanyl 50 mcg q.4 hours IV p.r.n., vancomycin 250 mL IV piggyback daily, Lovenox 40 mg subcutaneous daily, Protonix 40 mg IV push b.i.d., Rocephin 1 gram IV piggyback daily, Zofran p.r.n. CODE STATUS: Full code. REVIEW OF SYSTEMS: Remainder of his 14-point review of systems is negative except as listed in HPI. [address] [address] HISTORY AND PHYSICAL Name: Arlene SCHWARTZ Room #: 506-1 [facility] IN ..#: [id number] Admission: 03/20/19 Attend Phys: Joseluis Penn MD Discharge: 04/03/19 Date of : [birth year] Report #: [id number] PHYSICAL EXAMINATION: VITAL SIGNS: 145/60, respirations 18, pulse of 87, temperature 97.4, O2 sat 97% on room air. GENERAL: The patient is awake, alert. He answers basic orientation questions appropriately. He is pleasantly conversing. He is in no acute distress. HEENT: Head is normocephalic. Eyes: EOMs are intact. ENT: No sinus tenderness, no pharyngitis. NECK: No lymphadenopathy. HEART: Regular rate and rhythm, S1, S2. CHEST: Lungs are diminished in the bases. No wheezing or crackles. ABDOMEN: Bowel sounds are positive. Soft, nontender, nondistended. He has a right lower quadrant GRISEL drain with sutures intact. There is no dressing in place. He has serosanguineous drainage in the bulb. SKIN: He has a dressing to his left forearm. It is clean, dry and intact. His midline abdominal incision has an Optifoam in place. EXTREMITIES: The patient has a functional range of motion of the upper and lower extremities. Professional Tutor are equal bilaterally. No noted tremor. Lower extremities, able to lift into gravity. He has no edema. Sit to stand with mod assist. He is mod assist to walk 40 feet with a front wheel walker. Does have decreased trunk control and somewhat ataxic steps. Did fatigue easily. Bed mobility is mod assist. Bathing max assist. NEUROLOGIC: The patient has moderate comprehensive deficits, moderate expressive deficits, moderate cognitive deficits, moderate severe memory deficits. PSYCHIATRIC: Pleasant affect. LABORATORY DATA: 03/20/2019, sodium 137, potassium 4.1, BUN 26, creatinine 0.9, magnesium 2.1. ASSESSMENT: 1. Toxic metabolic encephalopathy. 2. Perforated gastric ulcer, status post repair. 3. Peritonitis, on IV antibiotics. 4. Generalized weakness and debility. 5. Chronic kidney disease stage 3. 6. Degenerative joint disease. 7. Hypertension. PLAN: The patient has been admitted to acute inpatient rehabilitation unit for physical, occupational and speech therapies. He will continue with Infectious Disease, Hospitalist, Surgery and geriatric consultants. He will have a neuropsychology evaluation. He is on fall precautions. He will have SCDs for DVT prophylaxis. He will have incentive spirometry for pneumonia prophylaxis. He will have bed and chair alarms on. He will have wound care to his left forearm in the abdomen. GRISEL drain to be monitored by the surgeon. We will have a team conference next Tuesday. Anticipate for discharge planning needs that he [facility] [address] [place] [address] HISTORY AND PHYSICAL Name: Arlene SCHWARTZ Room #: 506-1 [facility] IN [facility]#: [id number] Admission: 03/20/19 Attend Phys: Joseluis Penn MD Discharge: 04/03/19 Date of : [birth year] Report #: [id number] will require 28/02 supervision. He does have a daughter that lives with him and other supportive family. Please see extensive orders. <ELECTRONICALLY SIGNED> By: CELESTINO Butler 04/03/19 1656 [id number] CELESTINO Butler /nt
== END 2019-04-03 14:57 | disposition home health service (06) | DRG 91 ==
LOC: ENTRNSPT 04-03 12:05 → EDTRNSPTSTS 04-03 12:06
PROVIDERS: Hospitalist; Internal Medicine Nephrology; Nurse Practitioner; Nurse Practitioner Family; Psychiatry & Neurology Psychiatry; ADMIT Physical Medicine & Rehabilitation
DX: G92 Toxic encephalopathy (principal); K65.9 Peritonitis, unspecified; K25.1 Acute gastric ulcer with perforation; R78.81 Bacteremia; E46 Unspecified protein-calorie malnutrition; E87.1 Hypo-osmolality and hyponatremia; D62 Acute posthemorrhagic anemia; Z68.1 Body mass index [BMI] 19.9 or less, adult; N18.3 Chronic kidney disease, stage 3 (moderate); M19.90 Unspecified osteoarthritis, unspecified site; R53.81 Other malaise; N40.1 Benign prostatic hyperplasia with lower urinary tract symptoms; K21.9 Gastro-esophageal reflux disease without esophagitis; I12.9 Hypertensive chronic kidney disease with stage 1 through stage 4 chronic kidney disease, or unspecified chronic kidney disease; G89.29 Other chronic pain; M54.9 Dorsalgia, unspecified; R33.8 Other retention of urine; F41.9 Anxiety disorder, unspecified; E87.5 Hyperkalemia; F01.50 Vascular dementia, unspecified severity, without behavioral disturbance, psychotic disturbance, mood disturbance, and anxiety; R41.0 Disorientation, unspecified; Z90.49 Acquired absence of other specified parts of digestive tract; Z98.1 Arthrodesis status; Z88.6 Allergy status to analgesic agent; Z87.891 Personal history of nicotine dependence; Z68.22 Body mass index [BMI] 22.0-22.9, adult; Z79.899 Other long term (current) drug therapy; Z79.1 Long term (current) use of non-steroidal anti-inflammatories (NSAID)
CPT/HCPCS: 10112